=== PATIENT | female | born 1940 | race Caucasian/White ===

== ENCOUNTER → 2018-01-05 | Outpatient (CLI) | payer OTHER ==
[~2018-01-05] MED LIST: [UNRECOGNIZED DRUG - OTHER]
== END | disposition home or self-care (01) ==
LOC: NUCLEAR 08:00
DX: C84.48 Peripheral T-cell lymphoma, not elsewhere classified, lymph nodes of multiple sites (principal)
CPT/HCPCS: 78815; A9552

== ENCOUNTER 2018-01-13 08:21 | Outpatient (CLI) | payer OTHER | END 2018-01-13 08:25 | disposition home or self-care (01) | LOC: SONOGRAMA 08:21 | DX: R59.9 Enlarged lymph nodes, unspecified (principal) ==

== ENCOUNTER 2018-02-14 09:21 | Emergency (ER) | payer OTHER ==
[~2018-02-14] VITALS: Ht 149.9 cm; Wt 57.2 kg
[2018-02-14] MEDS ORDERED: DAFLONEX-XL TA1 EACH (09:36)
== END 2018-02-14 13:11 ==
LOC: ER 09:21
DX: R07.0 Pain in throat (principal)

== ENCOUNTER 2018-02-15 10:06 | Emergency (ER) | payer OTHER ==
[~2018-02-15] VITALS: Ht 149.9 cm; Wt 57.2 kg
[~2018-02-15 10:06] MED LIST changes: +DAFLONEX-XL TA1 EACH
== END 2018-02-15 14:18 | disposition home or self-care (01) ==
LOC: ER 10:06
DX: K29.60 Other gastritis without bleeding (principal)

== ENCOUNTER 2018-02-25 17:55 | Emergency (ER) | payer OTHER ==
[~2018-02-25] VITALS: Ht 165.1 cm; Wt 59.0 kg
[2018-02-25] MEDS ORDERED: OXALIPLATIN50 MG (18:15)
== END 2018-02-25 21:12 | disposition home or self-care (01) ==
LOC: ER 17:55
DX: R06.02 Shortness of breath (principal); F41.0 Panic disorder [episodic paroxysmal anxiety]

== ENCOUNTER 2018-06-16 08:48 | Outpatient (CLI) | payer OTHER ==
[~2018-06-16 08:48] MED LIST changes: +OXALIPLATIN50 MG
== END 2018-06-16 09:21 | disposition home or self-care (01) ==
LOC: NUCLEAR 08:48
DX: I82.629 Acute embolism and thrombosis of deep veins of unspecified upper extremity (principal)
CPT/HCPCS: 78815; 93970; A9552

== ENCOUNTER 2021-11-26 07:49 | Outpatient (CLI) | payer OTHER | END 2021-11-26 08:21 | disposition home or self-care (01) | LOC: SONOGRAMA 07:49 | PROVIDERS: ATTEND Pathology Anatomic Pathology & Clinical Pathology | DX: C84.40 Peripheral T-cell lymphoma, not elsewhere classified, unspecified site (principal) ==

== ENCOUNTER → 2021-12-31 | Outpatient (CLI) | payer OTHER | END | disposition home or self-care (01) | LOC: NUCLEAR 07:00 | PROVIDERS: ATTEND Internal Medicine Hematology & Oncology | DX: C84.48 Peripheral T-cell lymphoma, not elsewhere classified, lymph nodes of multiple sites (principal) | CPT/HCPCS: 78812; A9552 ==

== ENCOUNTER 2022-04-02 06:18 | Day surgery (SDC) | payer OTHER ==
[~2022-04-02 06:18] MED LIST changes: +ZYRTEC10 M3 PO
== END 2022-04-02 13:30 | disposition home or self-care (01) ==
LOC: CIR.AMB 06:18
PROVIDERS: ATTEND Specialist
DX: C91 Lymphoid leukemia (principal); E03.9 Hypothyroidism, unspecified; G30.9 Alzheimer's disease, unspecified

== ENCOUNTER 2022-04-29 10:40 | Outpatient (CLI) | payer OTHER | END 2022-04-29 10:46 | disposition home or self-care (01) | LOC: RAD 10:40 | PROVIDERS: ATTEND Specialist | DX: C91 Lymphoid leukemia (principal) ==

== ENCOUNTER 2022-11-11 07:49 | Outpatient (CLI) | payer OTHER | END 2022-11-11 07:51 | disposition home or self-care (01) | LOC: NUCLEAR 07:49 | PROVIDERS: ATTEND Internal Medicine Hematology & Oncology | DX: C84.48 Peripheral T-cell lymphoma, not elsewhere classified, lymph nodes of multiple sites (principal) | CPT/HCPCS: 78815; A9552 ==

== ENCOUNTER 2023-04-21 07:55 | Outpatient (CLI) | payer OTHER | END 2023-04-21 08:03 | disposition home or self-care (01) | LOC: TOM 07:55 | PROVIDERS: ATTEND Psychiatry & Neurology Neurology | DX: R41.3 Other amnesia (principal) ==

== ENCOUNTER 2023-06-18 07:12 | Outpatient (CLI) | payer OTHER | END 2023-06-18 07:19 | disposition home or self-care (01) | LOC: TOM 07:12 | PROVIDERS: ATTEND Internal Medicine Hematology & Oncology | DX: C85.90 Non-Hodgkin lymphoma, unspecified, unspecified site (principal); R22.1 Localized swelling, mass and lump, neck; R22.2 Localized swelling, mass and lump, trunk ==

== ENCOUNTER 2023-07-07 09:57 | Emergency (ER) | payer OTHER ==
[~2023-07-07] VITALS: Ht 152.4 cm; Wt 45.4 kg
[2023-07-07] MEDS ORDERED: ROSUVASTATIN CAL5 MG PO (10:16)
[2023-07-07] MEDS ORDERED: RAZADYNE ER16 MG PO (10:16)
[2023-07-07] MEDS ORDERED: TRAM1TAB98 PO (10:17)
[2023-07-07 11:58] LABS: HEMATOCRIT 37.6 % (36.0-45.00); HEMOGLOBIN 12.6 g/dL (12.0-15.00); MEAN CORPUSCULAR HEMOGLOBIN 30.2 pg (27.00-32.0); MEAN CORPUSCULAR HGB CONC 33.6 g/dl (32.0-36.0); PLATELET COUNT 409 K/uL (150-450); RED BLOOD COUNT 4.18 M/uL (4.00-6.00); RED CELL DISTRIBUTION WIDTH 14.5 % (11.5-14.5)
[2023-07-07] MEDS ORDERED: DICLOFENAC SODI75 MG PO (12:59)
== END 2023-07-07 14:05 | disposition home or self-care (01) ==
LOC: ER 09:57
PROVIDERS: General Practice
DX: J02.9 Acute pharyngitis, unspecified (principal); Z20.822 Contact with and (suspected) exposure to COVID-19
CPT/HCPCS: 36415; 96372; 99282; J1885

== ENCOUNTER 2023-07-10 07:27 | Outpatient (CLI) | payer OTHER ==
[~2023-07-10 07:27] MED LIST changes: +DICLOFENAC SODI75 MG PO; +RAZADYNE ER16 MG PO; +ROSUVASTATIN CAL5 MG PO; +TRAM1TAB98 PO
== END 2023-07-10 07:40 | disposition home or self-care (01) ==
LOC: SONOGRAMA 07:27
PROVIDERS: ATTEND Internal Medicine Hematology & Oncology
DX: L04.0 Acute lymphadenitis of face, head and neck (principal)

== ENCOUNTER 2023-07-19 07:00 | Inpatient (IN) | payer OTHER ==
[~2023-07-19] VITALS: Ht 152.4 cm; Wt 45.4 kg
[2023-07-19 09:40] LABS: HEMATOCRIT 36.2 % (36.0-45.00); HEMOGLOBIN 12.2 g/dL (12.0-15.00); MEAN CELL VOLUME 90.6 fL (80.00-100.00); MEAN CORPUSCULAR HEMOGLOBIN 30.5 pg (27.00-32.0); MEAN CORPUSCULAR HGB CONC 33.6 g/dl (32.0-36.0); PLATELET COUNT 596 K/uL (150-450); RED BLOOD COUNT 3.99 M/uL (4.00-6.00); RED CELL DISTRIBUTION WIDTH 13.6 % (11.5-14.5)
[2023-07-19 09:54] LABS: ERYTHROCYTE SEDIMENTATION RATE 42 mm/hr
[2023-07-19 09:57] LABS: ALBUMIN 2.8 gm/dL (3.4-5.0); BILIRUBIN TOTAL 0.41 mg/dL (0.3-1.2); CALCIUM 9.1 mg/dL (8.5-10.1); CREATININE SERUM 0.54 mg/dL (0.55-1.02); GFR 107.3; GLOBULINA 3.5 G/DL (2.4-3.5); POTASSIUM 3.93 mEq/L (3.5-5.1); TOTAL PROTEIN 6.3 gm/dL (6.4-8.2)
[2023-07-19 12:01] LABS: URINE EPITHELIAL CELLS 17.9 uL (0.0-38.8); URINE RBC 7.3 uL (0.0-20.8)
[2023-07-19 12:29] LABS: PH,URINE 5.5 (5.0-8.0); URINE APPEARANCE Clear; URINE BILIRRUBIN Negative (NEGATIVE); URINE BLOOD Negative; URINE COLOR Yellow; URINE GLUCOSE Negative (NEGATIVE); URINE LEUKOCYTE Small; URINE NITRATE Negative; URINE PROTEIN Negative (NEGATIVE); URINE UROBILINOGEN 0.2 E.U./dl
[2023-07-20 08:03] LABS: HEMATOCRIT 32.3 % (36.0-45.00); HEMOGLOBIN 10.9 g/dL (12.0-15.00); MEAN CELL VOLUME 90.7 fL (80.00-100.00); MEAN CORPUSCULAR HEMOGLOBIN 30.6 pg (27.00-32.0); MEAN CORPUSCULAR HGB CONC 33.7 g/dl (32.0-36.0); PLATELET COUNT 481 K/uL (150-450); RED BLOOD COUNT 3.56 M/uL (4.00-6.00); RED CELL DISTRIBUTION WIDTH 13.7 % (11.5-14.5)
[2023-07-20 08:19] LABS: MAGNESIUM 1.8 mg/dL (1.8-2.4); PHOSPHOROUS 3.3 mg/dL (2.5-4.9)
[2023-07-20 08:23] LABS: C-REACTIVE PROTEIN 14.7 MG/DL (0.00-0.29)
[2023-07-20 08:28] LABS: ERYTHROCYTE SEDIMENTATION RATE 26 mm/hr
[2023-07-20 09:24] LABS: CALCIUM 8.7 mg/dL (8.5-10.1); CREATININE SERUM 0.45 mg/dL (0.55-1.02); GFR 132.42; POTASSIUM 3.92 mEq/L (3.5-5.1)
[2023-07-20 09:25] LABS: INR 1.21; PARTIAL THROMBOPLASTIN TIME 33.5 SECONDS (22.0-34.0); PROTHROMBIN TIME 12.5 SECONDS (9.0-11.5)
[2023-07-21] MEDS ORDERED: DEXAMETHASONE4 MG (08:08)
[2023-07-22 13:01] LABS: HEMATOCRIT 30.9 % (36.0-45.00); HEMOGLOBIN 10.5 g/dL (12.0-15.00); MEAN CELL VOLUME 89.3 fL (80.00-100.00); MEAN CORPUSCULAR HEMOGLOBIN 30.4 pg (27.00-32.0); MEAN CORPUSCULAR HGB CONC 34.1 g/dl (32.0-36.0); PLATELET COUNT 426 K/uL (150-450); RED BLOOD COUNT 3.46 M/uL (4.00-6.00); RED CELL DISTRIBUTION WIDTH 13.9 % (11.5-14.5)
[2023-07-22 13:12] LABS: ERYTHROCYTE SEDIMENTATION RATE 41 mm/hr
[2023-07-26 09:32] LABS: ALBUMIN 2.5 gm/dL (3.4-5.0); BILIRUBIN TOTAL 0.33 mg/dL (0.3-1.2); CALCIUM 9.1 mg/dL (8.5-10.1); CREATININE SERUM 0.38 mg/dL (0.55-1.02); GFR 160.95; GLOBULINA 2.4 G/DL (2.4-3.5); TOTAL PROTEIN 4.9 gm/dL (6.4-8.2)
[2023-07-26 09:39] LABS: C-REACTIVE PROTEIN 1.69 MG/DL (0.00-0.29); HEMATOCRIT 32.5 % (36.0-45.00); HEMOGLOBIN 10.9 g/dL (12.0-15.00); MEAN CELL VOLUME 88.5 fL (80.00-100.00); MEAN CORPUSCULAR HEMOGLOBIN 29.7 pg (27.00-32.0); MEAN CORPUSCULAR HGB CONC 33.6 g/dl (32.0-36.0); PLATELET COUNT 456 K/uL (150-450); RED BLOOD COUNT 3.67 M/uL (4.00-6.00); RED CELL DISTRIBUTION WIDTH 14.3 % (11.5-14.5)
[2023-07-26 11:05] LABS: ERYTHROCYTE SEDIMENTATION RATE 42 mm/hr
[2023-07-29 16:07] LABS: kappa lambda r 1.37 (0.26-1.65); kappa light 10.4 mg/L (3.3-19.4); lambda light 7.6 mg/L (5.7-26.3)
[2023-07-29] MEDS ORDERED: FAMOTIDINE20 MG PO (18:29)
[2023-07-29] MEDS ORDERED: FLAGYL375 MG PO (18:30)
[2023-07-31 08:10] LABS: BETA-2-MICROGLOBULINA 2.2 mg/L (0.6-2.4)
== END 2023-07-29 18:54 | disposition home or self-care (01) | DRG 603 ==
LOC: ER 07:02 → MEDJ 15:18
PROVIDERS: General Practice; Internal Medicine Infectious Disease; ADMIT Internal Medicine Hematology & Oncology; ATTEND Internal Medicine Hematology & Oncology
PROC: BW2FYZZ Computerized Tomography (CT Scan) of Neck using Other Contrast (ICD-10-PCS; 2023-07-19)
PROC: 0J953ZZ Drainage of Left Neck Subcutaneous Tissue and Fascia, Percutaneous Approach (ICD-10-PCS; principal; 2023-07-21)
PROC: BW2FYZZ Computerized Tomography (CT Scan) of Neck using Other Contrast (ICD-10-PCS; 2023-07-26)
DX: L02.11 Cutaneous abscess of neck (principal); L03.221 Cellulitis of neck; Z85.72 Personal history of non-Hodgkin lymphomas; Z85.6 Personal history of leukemia

== ENCOUNTER 2023-08-14 08:44 | Outpatient (CLI) | payer OTHER ==
[~2023-08-14 08:44] MED LIST changes: +DEXAMETHASONE4 MG; +FAMOTIDINE20 MG PO; +FLAGYL375 MG PO
== END 2023-08-14 08:45 | disposition home or self-care (01) ==
LOC: SONOGRAMA 08:44
PROVIDERS: ATTEND Pathology Anatomic Pathology & Clinical Pathology
DX: C84.48 Peripheral T-cell lymphoma, not elsewhere classified, lymph nodes of multiple sites (principal)

== ENCOUNTER 2023-08-20 07:20 | Outpatient (CLI) | payer OTHER | END 2023-08-20 07:23 | disposition home or self-care (01) | LOC: NUCLEAR 07:20 | PROVIDERS: ATTEND Internal Medicine Hematology & Oncology | DX: C84.48 Peripheral T-cell lymphoma, not elsewhere classified, lymph nodes of multiple sites (principal) | CPT/HCPCS: 78816; A9552 ==

== ENCOUNTER 2024-03-12 08:03 | Outpatient (CLI) | payer OTHER | END 2024-03-12 08:04 | disposition home or self-care (01) | LOC: NUCLEAR 08:03 | PROVIDERS: ATTEND Internal Medicine Hematology & Oncology | DX: C84.48 Peripheral T-cell lymphoma, not elsewhere classified, lymph nodes of multiple sites (principal) | CPT/HCPCS: 78816; A9552 ==

== ENCOUNTER 2024-04-15 07:25 | Outpatient (CLI) | payer OTHER | END 2024-04-15 07:33 | disposition home or self-care (01) | LOC: SONOGRAMA 07:25 | PROVIDERS: ATTEND Internal Medicine Hematology & Oncology | DX: C84.48 Peripheral T-cell lymphoma, not elsewhere classified, lymph nodes of multiple sites (principal); R59.0 Localized enlarged lymph nodes ==

== ENCOUNTER 2024-11-08 08:11 | Emergency (ER) | payer OTHER ==
[~2024-11-08] VITALS: Ht 152.4 cm; Wt 45.4 kg
[2024-11-08] MEDS ORDERED: IMURAN50 MG PO (08:45)
[2024-11-08] MEDS ORDERED: KETOROLAC TROMETHAMINE 30 MG VIAL IV ONE (09:45)
[2024-11-08] MEDS ORDERED: KETOROLAC TROMETHAMINE 30 MG VIAL ONE (09:45)
[2024-11-08] MEDS ORDERED: 0.9 % SODIUM CHLORIDE 1,000 ML IV ONE (09:45)
[2024-11-08 10:25] LABS: HEMOGLOBIN 14.2 g/dL (12.0-15.00); MEAN CELL VOLUME 90.7 fL (80.00-100.00); MEAN CORPUSCULAR HEMOGLOBIN 30.7 pg (27.00-32.0); MEAN CORPUSCULAR HGB CONC 33.8 g/dl (32.0-36.0); PLATELET COUNT 333 K/uL (150-450); RED BLOOD COUNT 4.63 M/uL (4.00-6.00)
[2024-11-08 11:27] LABS: ALBUMIN 3.5 gm/dL (3.4-5.0); BILIRUBIN TOTAL 0.35 mg/dL (0.3-1.2); CALCIUM 9.7 mg/dL (8.5-10.1); CREATININE SERUM 0.56 mg/dL (0.55-1.02); GFR 102.64; POTASSIUM 4.83 mEq/L (3.5-5.1); TOTAL PROTEIN 6.5 gm/dL (6.4-8.2)
[2024-11-08] MEDS ORDERED: PROTONIX40 MG PO (13:24)
[2024-11-08] MEDS ORDERED: DEXAMETHASONE4 MG PO (13:24)
== END 2024-11-08 13:47 | disposition home or self-care (01) ==
LOC: ER 08:11
PROVIDERS: General Practice
DX: C85.90 Non-Hodgkin lymphoma, unspecified, unspecified site (principal); C91 Lymphoid leukemia
CPT/HCPCS: 36415; 71260; 96365; 96366; 99284; J1885; J7030; Q9965

== ENCOUNTER 2025-04-01 07:11 | Outpatient (CLI) | payer OTHER ==
[~2025-04-01 07:11] MED LIST changes: +DEXAMETHASONE4 MG PO; +IMURAN50 MG PO; +PROTONIX40 MG PO
== END 2025-04-01 07:20 | disposition home or self-care (01) ==
LOC: TOM 07:11
PROVIDERS: ATTEND Psychiatry & Neurology Neurology
DX: R41.3 Other amnesia (principal)

== ENCOUNTER 2025-06-15 07:09 | Outpatient (CLI) | payer OTHER | END 2025-06-15 07:15 | disposition home or self-care (01) | LOC: MAMO-SONO 07:09 | PROVIDERS: ATTEND Internal Medicine Hematology & Oncology | DX: Z92.3 Personal history of irradiation (principal); Z12.31 Encounter for screening mammogram for malignant neoplasm of breast ==